=== PATIENT | male | born 2005 | race Caucasian/White ===

== ENCOUNTER 2024-03-16 22:20 | Emergency (ER) | payer BC ==
[~2024-03-16] VITALS: Ht 152.4 cm; Wt 77.9 kg
[2024-03-16 22:31] VITALS: BP 150/62; PULSE 91; O2SAT 99
[2024-03-16] MEDS ORDERED: LIDO700A32 TOP (23:59)
[2024-03-16] MEDS ORDERED: CYCL-1 PO (23:59)
[2024-03-17] MEDS: cyclobenzaprine 10mg tablet PO ONE (00:20)
[2024-03-17 00:21] VITALS: RESP 16
[2024-03-17] MEDS: dexamethasone sod phosphate 10mg/ml inj IM STA (00:21)
[2024-03-17] MEDS: ketorolac trometh. 30mg/ml inj. IM ONE (00:21)
[2024-03-17 00:31] VITALS: TEMP 98
== END 2024-03-17 00:35 | disposition home or self-care (01) ==
LOC: ER 22:22
DX: S29.012A Strain of muscle and tendon of back wall of thorax, initial encounter (principal); S16.1XXA Strain of muscle, fascia and tendon at neck level, initial encounter; V89.2XXA Person injured in unspecified motor-vehicle accident, traffic, initial encounter; Y93.89 Activity, other specified; Y92.89 Other specified places as the place of occurrence of the external cause; Y99.8 Other external cause status
CPT/HCPCS: 72040; 72070; 96372; 99284; J1100; J1885